=== PATIENT | female | born 1975 | race Two or more races ===

== ENCOUNTER 2018-10-14 11:46 | Outpatient (CLI) | payer BC | END 2018-10-14 23:59 | disposition home or self-care (01) | LOC: MRI 11:46 | PROVIDERS: ATTEND Legal Medicine | DX: M19.012 Primary osteoarthritis, left shoulder (principal); M75.52 Bursitis of left shoulder | CPT/HCPCS: 73221-TC ==

== ENCOUNTER 2019-03-25 10:08 | Outpatient (CLI) | payer BC | END 2019-03-25 23:59 | disposition home or self-care (01) | LOC: MRI 10:08 | PROVIDERS: ATTEND Legal Medicine | DX: M50.21 Other cervical disc displacement, high cervical region (principal); M48.02 Spinal stenosis, cervical region | CPT/HCPCS: 72141-TC ==

== ENCOUNTER 2020-04-15 10:31 | Outpatient (CLI) | payer BC ==
[2020-04-15 11:22] LABS: APPEARANCE,URINE CLEAR (CLEAR); BILIRUBIN,URINE NEGATIVE (NEGATIVE); BLOOD, URINE NEGATIVE Ery/uL (NEGATIVE); COLOR,URINE YELLOW (YELLOW); KETONES,URINE NEGATIVE (NEGATIVE); LEUKOCYTE ESTERASE ,URINE TRACE (NEGATIVE); NITRITE, URINE NEGATIVE (NEGATIVE); PROTEIN,URINE NEGATIVE (NEGATIVE); UGLUCOSE NEGATIVE (NEGATIVE); UROBILINOGEN,URINE 0.2 EU/dL (0.2)
[2020-04-15 11:29] LABS: BACTERIA,URINE Moderate /HPF (None Seen); RBC,URINE NONE SEEN /HPF (0-2); SQUAMOUS EPITHELIAL CELL,UR Few /HPF (None Seen)
[2020-04-15 11:33] LABS: IRON, SERUM 154 ug/dl (50-175); TOTAL IRON BINDING CAPACITY 975 ug/dl (250-450)
[2020-04-15 11:47] LABS: FERRITIN 53 ng/mL (8-388)
[2020-04-15 11:48] LABS: C-REACTIVE PROTEIN < 0.2 mg/dL (0.0-0.9)
[2020-04-16 08:16] LABS: FOLLICLE STIMULATION HORMONE 4.9 mIU/mL (.); LUTEINIZING HORMONE 6.9 mIU/mL (.); PROLACTIN 7.4 ng/mL (4.8-23.3); THYROID PEROXIDASE (TPO) AB 37 IU/mL (0-34)
[2020-04-16 17:16] LABS: *ANA ANTI-CENTROMERE B AB <0.2 AI (0.0-0.9); *ANA ANTI-DNA(DS) AB, QN 1 IU/mL (0-9); *ANA ANTI-JO-1 <0.2 AI (0.0-0.9); *ANA ANTICHROMATIN ANTIBODY <0.2 AI (0.0-0.9); *ANA RNP ANTIBODIES 0.2 AI (0.0-0.9); *ANA SJOGREN'S ANTI-SS-A <0.2 AI (0.0-0.9); *ANA SJOGREN'S ANTI-SS-B <0.2 AI (0.0-0.9); *ANAANTI-SCLERODERMA-70 AB <0.2 AI (0.0-0.9); *ANASMITH AB <0.2 AI (0.0-0.9)
[2020-04-17 05:10] LABS: CMV, IgG <0.60 U/mL (0.00-0.59); CMV, IgM <30.0 AU/mL (0.0-29.9)
[2020-04-18 20:11] LABS: CCP IgG/IgA AB 3 units (0-19)
[2020-04-19 11:33] LABS: ACTH, PLASMA 14.7 pg/mL (7.2-63.3)
== END 2020-04-15 23:59 | disposition home or self-care (01) ==
LOC: LAB 10:31
PROVIDERS: ATTEND Legal Medicine
DX: E03.9 Hypothyroidism, unspecified (principal); D64.9 Anemia, unspecified; R53.1 Weakness
CPT/HCPCS: 36415; 81000-TC; 82024; 82306; 82533; 82626; 82670; 82728-TC; 83001; 83002; 83540-TC; 84146; 84439-TC; 84443-TC; 85652-TC; 86140-TC; 86200; 86225; 86235; 86376; 86431-TC; 86644; 86645; 86800; 87086-TC; 87186-TC